=== PATIENT | female | born 1940 | race Caucasian/White ===

== ENCOUNTER 2020-04-30 13:55 | Outpatient (CLI) | payer MEDICARE ==
--- NOTE | 2020-04-30 14:22 | RAD ---
EXAM: Chest PA and lateral: HISTORY: Fatigue COMPARISON: None FINDINGS: Heart: Normal cardiac silhouette Aorta: Atherosclerosis Pulmonary vessels: Normal Costophrenic angles: Costophrenic angles are clear. Lungs: No consolidation or masses. Pneumothorax: No pneumothorax Osseous structures: No osseous abnormalities IMPRESSION: No acute cardiopulmonary process. Atherosclerosis
== END 2020-04-30 13:56 | disposition home or self-care (01) ==
LOC: RAD-FRANK 13:55
PROVIDERS: ATTEND Nurse Practitioner Family
DX: I10 Essential (primary) hypertension (principal); I70.90 Unspecified atherosclerosis
CPT/HCPCS: 71046

== ENCOUNTER 2020-12-29 14:32 | Outpatient (CLI) | payer MEDICARE ==
--- NOTE | 2020-12-30 07:03 | RAD ---
Lumbar spine: 3 views INDICATIONS:Low back pain COMPARISON:None FINDINGS: Vertebral bodies maintain normal height. Disc space narrowing at all levels of the lumbar spine. Normal alignment is maintained. Moderate degenerative spurring from the anterior and lateral vertebral bodies. Facet hypertrophy. No evidence of spondylolisthesis. No soft tissue abnormality. IMPRESSION: Moderate degenerative changes.
== END 2020-12-29 14:33 | disposition home or self-care (01) ==
LOC: RAD-FRANK 14:32
PROVIDERS: ATTEND Nurse Practitioner Family
DX: M54.5 Low back pain (principal); M47.816 Spondylosis without myelopathy or radiculopathy, lumbar region
CPT/HCPCS: 72100

== ENCOUNTER 2022-02-04 09:59 | Outpatient (CLI) | payer MEDICARE | END 2022-02-04 10:00 | disposition home or self-care (01) | LOC: RAD-FRANK 09:59 | PROVIDERS: ATTEND Nurse Practitioner Family | DX: M79.674 Pain in right toe(s) (principal); S92.424A Nondisplaced fracture of distal phalanx of right great toe, initial encounter for closed fracture ==

== ENCOUNTER 2022-03-28 09:47 | Outpatient (CLI) | payer MEDICARE | END 2022-03-28 09:48 | disposition home or self-care (01) | LOC: RAD-FRANK 09:47 | PROVIDERS: ATTEND Nurse Practitioner Family | DX: S92.414D Nondisplaced fracture of proximal phalanx of right great toe, subsequent encounter for fracture with routine healing (principal); M81.0 Age-related osteoporosis without current pathological fracture ==